=== PATIENT | female | born 2000 | race Caucasian/White ===

== ENCOUNTER 2018-12-26 07:26 | Outpatient (CLI) | payer BC ==
--- NOTE | 2018-12-26 13:13 | NM ---
Exam: Nuclear medicine gastric emptying scan HISTORY: Epigastric pain. Early satiety. Weight loss. Comparison none TECHNIQUE: Patient history 2 mCi of technetium 99m sulfur colloid orally in a standard egg mixture FINDINGS: 0 minutes, 0% 35 minutes, 15% 63 minutes, 34% 190 minutes, 64% 181 minutes, 87% 3 and 41 minutes, 97% T1 half-time of 93 minutes IMPRESSION: Normal T1 half-time.
== END 2018-12-26 07:27 | disposition home or self-care (01) ==
LOC: NM 07:26
PROVIDERS: ATTEND Internal Medicine
DX: R10.13 Epigastric pain (principal); R68.81 Early satiety; R11.0 Nausea
CPT/HCPCS: 78264; A9541